=== PATIENT | male | born 2005 | race Hispanic/Latino ===

== ENCOUNTER 2024-04-12 20:26 | Emergency (ER) | payer OTHER ==
[~2024-04-12] VITALS: Ht 170.2 cm; Wt 86.1 kg
[2024-04-12 22:15] VITALS: BP 122/58; TEMP 98.7; O2SAT 98
[2024-04-12] MEDS: CIPROFLOXACIN 500MG TABLET PO ONE (22:20)
[2024-04-12] MEDS ORDERED: CIPR-249 PO (22:20)
[2024-04-12] MEDS: BOOSTRIX VACCINE (TETANUS/DIPHTH/ACEL. PERTUSSIS) 0.5ML SYR IM ONE (22:20)
== END 2024-04-12 22:39 | disposition home or self-care (01) ==
LOC: M ED 20:26
DX: S91.331A Puncture wound without foreign body, right foot, initial encounter (principal); W45.0XXA Nail entering through skin, initial encounter; Y92.009 Unspecified place in unspecified non-institutional (private) residence as the place of occurrence of the external cause; Y93.89 Activity, other specified; Y99.9 Unspecified external cause status; Z23 Encounter for immunization; Z79.2 Long term (current) use of antibiotics